=== PATIENT | male | born 2000 | race Hispanic/Latino ===

== ENCOUNTER 2023-05-07 04:22 | Emergency (ER) | payer SELFPAY | END 2023-05-07 08:20 | disposition home or self-care (01) | LOC: CSHERS 04:22 | DX: S01.312A Laceration without foreign body of left ear, initial encounter (principal); F10.129 Alcohol abuse with intoxication, unspecified; F17.290 Nicotine dependence, other tobacco product, uncomplicated; J45.909 Unspecified asthma, uncomplicated; W01.0XXA Fall on same level from slipping, tripping and stumbling without subsequent striking against object, initial encounter | CPT/HCPCS: 12011; 70450 ==